=== PATIENT | female | born 1975 | race Caucasian/White ===

== ENCOUNTER 2016-09-26 08:37 | Emergency (ER) | payer MEDICAID ==
[2016-09-26 08:55] VITALS: BP 135/79
--- NOTE | 2016-09-26 11:35 | Emergency Department Report ---
HPI - General Chief Complaint: Headache Time Seen by Provider: 09/26/16 10:34 - HPI HPI: 41-year-old female with a past medical history migraines presents today with complaints of headache similar to previous migraines x20 days. Patient has been compliant with Imitrex, Percocet, and Zonisamide without relief. She also receives Botox therapy for difficult to control migraines. Patient supplies a letter written by her neurologist Obey Patterson with [facility] stating that patient has refractory migraines that have been resistant to multiple standard treatments and requested that patient be treated with Decadron and Dilaudid during ED presentation. Patient complains of some mild dizziness and blurred vision without neck pain, focal weakness, or numbness. Positive for nausea, vomiting and photosensitivity. Denies fever, chills, chest pain, shortness of breath, abdominal pain. ED Past Medical Hx - Past Medical History Hx Hypertension: Yes Hx CVA: No Hx Heart Attack/AMI: No Hx Congestive Heart Failure: No Hx Diabetes: No Hx Deep Vein Thrombosis: No Hx Pulmonary Embolism: Yes (09/2014) Hx Liver Disease: No Hx Renal Disease: No Hx Sickle Cell Disease: No Hx Arthritis: No Hx Headaches / Migraines: Yes ((receives botox treatments for migraine)) Hx Seizures: No Hx Kidney Stones: No Hx Psychiatric Treatment: Yes (DEPRESSION) Hx Asthma: No Hx COPD: No Hx Tuberculosis: No Hx Dementia: No Hx HIV: No Additional medical history: Vertigo. HYPOTHYROID. OBESITY - Surgical History Hx Coronary Stent: No Hx Open Heart Surgery: No Hx Pacemaker: No Hx Internal Defibrillator: No Hx Cholecystectomy: Yes (2010) Hx Appendectomy: No Hx Breast Surgery: No Additional Surgical History: 3 C-sections. tubal ligation in December 2008 - Social History Smoking Status: Former Smoker Substance Use Type: None - Medications Home Medications: Home Medications Medication Instructions Recorded Confirmed Last Taken Type Lisinopril [Zestril TAB] 20 mg PO QDAY 08/18/14 06/21/16 06/21/16 History Zonisamide 100 mg PO QHS 03/13/16 06/21/16 06/20/16 History HYDROcodone/APAP 5-325 [Benedict 1 each PO Q6HR PRN #14 tablet 04/20/16 06/21/16 Unknown Rx 5/325] Ondansetron [Zofran Odt] 4 mg PO Q6H #7 tab.rapdis 04/20/16 06/21/16 06/21/16 Rx Citalopram [celeXA] 20 mg PO QDAY 06/21/16 06/21/16 06/20/16 History SUMAtriptan SUCCINATE [Imitrex] 100 mg PO Q12H PRN 06/21/16 06/21/16 06/21/16 History ED Review of Systems ROS: Stated complaint: MIGRAINE/SEVERE NAUSEA Other details as noted in HPI Constitutional: denies: chills, fever, malaise Eyes: denies: eye pain ENT: denies: ear pain, throat pain, congestion Respiratory: denies: cough, shortness of breath, wheezing Cardiovascular: denies: chest pain, palpitations Endocrine: no symptoms reported Gastrointestinal: nausea, vomiting. denies: abdominal pain Neurological: headache. denies: weakness, numbness, paresthesias Physical Exam - Physical Exam Vital Signs: Vital Signs 09/26/16 08:53 Temperature 98.7 F Pulse Rate 89 Respiratory 18 Rate Blood Pressure 135/79 [Right] O2 Sat by Pulse 98 Oximetry Physical Exam: GENERAL: The patient is well-developed and well-nourished. Patient is in NAD. HEAD: Normocephalic. Atraumatic. EYES: Extraocular motions are intact, PERRL. NOSE: Normal nasal mucosa with no nasal discharge. THROAT: No erythema, swelling or exudates. NECK: No midline or paraspinal tenderness to palpation. CHEST/LUNGS: Clear to auscultation throughout. HEART/CARDIOVASCULAR: Regular rate and rhythm. No murmurs, rubs or gallops. ABDOMEN: Abdomen is soft, nontender. No guarding or rebound tenderness. EXTREMITIES: Peripheral pulses intact. Capillary refill less than 2 seconds. Neuro: Alert and oriented 3, normal gait, fluid speech, EOMs intact, normal facial sensation, strength exam 5/5 upper and lower extremities, GCS equals 15, finger to nose normal, negative Romberg test for pronator drift. ED Course Vital Signs 09/26/16 08:53 Temperature 98.7 F Pulse Rate 89 Respiratory 18 Rate Blood Pressure 135/79 [Right] O2 Sat by Pulse 98 Oximetry ED Medical Decision Making - Lab Data Vital Signs 09/26/16 08:53 Temperature 98.7 F Pulse Rate 89 Respiratory 18 Rate Blood Pressure 135/79 [Right] O2 Sat by Pulse 98 Oximetry - Medical Decision Making 41-year-old female with history of migraines presents today with a migraine headache 20 days. Patient referred from her neurologist stating it is acceptable for her to receive Decadron and IV Dilaudid for severe refractory migraines. Discussed with Dr. Villa, he denies administration of IV Dilaudid and recommends patient follow up with her neurologist. Informed the patient and she expressed understanding. Patient is in no acute distress at this time. She will be discharged home and is encouraged to follow up with her neurologist. She is encouraged to return to the emergency room for any worsening symptoms. Critical care attestation.: If time is entered above; I have spent that time in minutes in the direct care of this critically ill patient, excluding procedure time. ED Disposition Clinical Impression: Migraine headache Qualifiers: Migraine type: unspecified Status migrainosus presence: with status migrainosus Intractability: intractable Qualified Code(s): G43.911 - Migraine, unspecified, intractable, with status migrainosus Disposition: DISCHARGED TO HOME OR SELFCARE Is pt being admited?: No Does the pt Need Aspirin: No Condition: Stable Instructions: Migraine Headache (ED) Additional Instructions: Follow-up with primary care provider and neurologist. Return to the emergency department if symptoms worsen. Referrals: PRIMARY MD FERCHO [Primary Care Provider] - 3-5 Days AWILDA LENNON MD, PHD [Staff Physician] - 3-5 Days Forms: Work/School Release Form(ED) Time of Disposition: 11:37
== END 2016-09-26 11:50 | disposition home or self-care (01) ==
LOC: ED 08:37
DX: G43.911 Migraine, unspecified, intractable, with status migrainosus (principal); I10 Essential (primary) hypertension; F32.9 Major depressive disorder, single episode, unspecified; Z86.711 Personal history of pulmonary embolism; Z87.891 Personal history of nicotine dependence
CPT/HCPCS: 99281

== ENCOUNTER 2017-03-21 11:09 | Emergency (ER) | payer MEDICAID ==
[2017-03-21 11:41] VITALS: BP 144/79
[2017-03-21 12:03] LABS: Hematocrit 38.7 % (30.3-42.9); Mean Corpuscular HGB Conc 31 % (30-34); Mean Corpuscular Volume 79 fl (79-97); Platelet Count 294 K/mm3 (140-440); Red Cell Distribution Width 17.1 % (13.2-15.2); White Blood Count 14.6 K/mm3 (4.5-11.0)
[2017-03-21 12:08] LABS: Mean Corpuscular Hemoglobin 24 pg (28-32)
[2017-03-21 12:23] LABS: Alanine Aminotransferase 21 units/L (7-56); Albumin 3.9 g/dL (3.9-5); Albumin/Globulin Ratio 1.3 %; Alkaline Phosphatase 78 units/L (35-129); Anion Gap 18 mmol/L; BUN/Creatinine Ratio 17.14; Blood Urea Nitrogen 12 mg/dL (7-17); Calcium 8.9 mg/dL (8.4-10.2); Carbon Dioxide 21 mmol/L (22-30); Chloride 103.3 mmol/L (98-107); Glucose 90 mg/dL (65-100); Lipase 43 units/L (13-60); Potassium 3.1 mmol/L (3.6-5.0); Sodium 139 mmol/L (137-145); Total Protein 6.8 g/dL (6.3-8.2)
[2017-03-21 13:02] LABS: Basophils % (Manual) 0 % (0.0-1.8); Blastocytes % (Manual) 0 %
[2017-03-21 13:03] LABS: Elliptocytes Few; Hypochromasia 1+; Ovalocytes Few
[2017-03-21 13:04] LABS: Diff Status Complete; Platelet Estimate Consistent w Auto
[2017-03-21 13:59] LABS: Bacteria,Urine 1+ /HPF (Negative); Bilirubin,Urine NEG (Negative); Blood,Urine SM (Negative); Ketones,Urine NEG (Negative); Leukocyte Esterase,Urine NEG (Negative); Mucus,Urine FEW /HPF; Nitrite,Urine NEG (Negative); Protein,Urine <15 mg/dL mg/dL (Negative); Urobilinogen,Urine < 2.0 mg/dL (<2.0)
--- NOTE | 2017-03-22 10:35 | ED Elopement Review ---
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 Manual Diff Complete Total Counted 100 Seg Neuts % (Manual) 67.0 Band Neutrophils % 0 Lymphocytes % (Manual) 30.0 Reactive Lymphs % (Man) 0 Monocytes % (Manual) 2.0 Eosinophils % (Manual) 1.0 Basophils % (Manual) 0 Metamyelocytes % 0 Myelocytes % 0 Promyelocytes % 0 Blast Cells % 0 Nucleated RBC % Not Reportable Seg Neutrophils # Man 9.8 H Band Neutrophils # 0.0 Lymphocytes # (Manual) 4.4 Abs React Lymphs (Man) 0.0 Monocytes # (Manual) 0.3 Eosinophils # (Manual) 0.1 Basophils # (Manual) 0.0 Metamyelocytes # 0.0 Myelocytes # 0.0 Promyelocytes # 0.0 Blast Cells # 0.0 WBC Morphology Not Reportable Hypersegmented Neuts Not Reportable Hyposegmented Neuts Not Reportable Hypogranular Neuts Not Reportable Smudge Cells Not Reportable Toxic Granulation Not Reportable Toxic Vacuolation Not Reportable Dohle Bodies Not Reportable Pelger-Huet Anomaly Not Reportable Lonny Rods Not Reportable Platelet Estimate Consistent w auto Clumped Platelets Not Reportable Plt Clumps, EDTA Not Reportable Large Platelets Not Reportable Giant Platelets Not Reportable Platelet Satelliting Not Reportable Plt Morphology Comment Not Reportable RBC Morphology Not Reportable Dimorphic RBCs Not Reportable Polychromasia Not Reportable Hypochromasia 1+ Poikilocytosis Not Reportable Anisocytosis Not Reportable Microcytosis Not Reportable Macrocytosis Not Reportable Spherocytes Not Reportable Pappenheimer Bodies Not Reportable Sickle Cells Not Reportable Target Cells Not Reportable Tear Drop Cells Not Reportable Ovalocytes Few Helmet Cells Not Reportable [place] Bodies Not Reportable [place] Rings Not Reportable [place] Cells Not Reportable Bite Cells Not Reportable Crenated Cell Not Reportable Elliptocytes Few Acanthocytes (Spur) Not Reportable Rouleaux Not Reportable Hemoglobin C Crystals Not Reportable Schistocytes Not Reportable Malaria parasites Not Reportable [place] Bodies Not Reportable Hem Pathologist Commnt No Sodium 139 Potassium 3.1 L Chloride 103.3 Carbon Dioxide 21 L Anion Gap 18 BUN 12 Creatinine 0.7 Estimated GFR > 60 BUN/Creatinine Ratio 17.14 Glucose 90 Calcium 8.9 Total Bilirubin 0.20 AST 13 ALT 21 Alkaline Phosphatase 78 Total Protein 6.8 Albumin 3.9 Albumin/Globulin Ratio 1.3 Lipase 43 Urine Color Yellow Urine Turbidity Clear Urine pH 6.0 Ur Specific [place] 1.016 Urine Protein <15 mg/dl Urine Glucose (UA) >=500 Urine Ketones Neg Urine Blood Sm Urine Nitrite Neg Urine Bilirubin Neg Urine Urobilinogen < 2.0 Ur Leukocyte Esterase Neg Urine WBC (Auto) 1.0 Urine RBC (Auto) 1.0 U Epithel Cells (Auto) 3.0 Urine Bacteria (Auto) 1+ Urine Mucus Few - Call Back decision Pt Call Back Decision: Pt to F/U with PMD
== END 2017-03-21 21:35 | disposition left against medical advice (07) ==
LOC: ED 11:09
DX: R10.10 Upper abdominal pain, unspecified (principal); R11.11 Vomiting without nausea; Z53.21 Procedure and treatment not carried out due to patient leaving prior to being seen by health care provider
CPT/HCPCS: 36415; 80053; 81001; 81025; 83690; 85007; 85025

== ENCOUNTER 2017-04-05 09:19 | Emergency (ER) | payer MEDICAID ==
[2017-04-05 10:14] VITALS: BP 150/103
== END 2017-04-05 10:11 | disposition left against medical advice (07) ==
LOC: ED 09:19
DX: G43.909 Migraine, unspecified, not intractable, without status migrainosus (principal); R42 Dizziness and giddiness; R11.2 Nausea with vomiting, unspecified; Z88.8 Allergy status to other drugs, medicaments and biological substances; Z87.891 Personal history of nicotine dependence; Z53.21 Procedure and treatment not carried out due to patient leaving prior to being seen by health care provider

== ENCOUNTER 2017-04-26 08:58 | Emergency (ER) | payer MEDICAID ==
[2017-04-26 09:12] VITALS: BP 126/80
== END 2017-04-26 14:14 ==
LOC: ED 08:58
DX: R51 Headache (principal); Z53.21 Procedure and treatment not carried out due to patient leaving prior to being seen by health care provider
CPT/HCPCS: 93005; 93010

== ENCOUNTER 2017-05-05 03:01 | Emergency (ER) | payer MEDICAID ==
[2017-05-05 04:36] LABS: Eosinophils % (Auto) 2.4 % (0.0-4.3); Mean Corpuscular HGB Conc 31 % (30-34); Mean Corpuscular Volume 81 fl (79-97); Platelet Count 264 K/mm3 (140-440); Red Cell Distribution Width 18.5 % (13.2-15.2); White Blood Count 10.3 K/mm3 (4.5-11.0)
[2017-05-05 04:51] LABS: Hematocrit 41.3 % (30.3-42.9); Hemoglobin 12.6 gm/dl (10.1-14.3); Mean Corpuscular Hemoglobin 25 pg (28-32)
[2017-05-05 04:53] LABS: Alanine Aminotransferase 14 units/L (7-56); Albumin 4.2 g/dL (3.9-5); Albumin/Globulin Ratio 1.5 %; Alkaline Phosphatase 76 units/L (35-129); Anion Gap 22 mmol/L; Blood Urea Nitrogen 13 mg/dL (7-17); Calcium 8.8 mg/dL (8.4-10.2); Carbon Dioxide 16 mmol/L (22-30); Chloride 106.7 mmol/L (98-107); Glucose 102 mg/dL (65-100); Lipase 35 units/L (13-60); Potassium 4.2 mmol/L (3.6-5.0); Sodium 140 mmol/L (137-145)
[2017-05-05 04:58] LABS: Bacteria,Urine 1+ /HPF (Negative); Bilirubin,Urine NEG (Negative); Blood,Urine NEG (Negative); Ketones,Urine NEG (Negative); Leukocyte Esterase,Urine TR (Negative); Mucus,Urine FEW /HPF; Nitrite,Urine NEG (Negative); Protein,Urine <15 mg/dL mg/dL (Negative); Urobilinogen,Urine < 2.0 mg/dL (<2.0)
[2017-05-05] MEDS ORDERED: ZOFRAN IV ONE ×2 (07:54→09:53)
[2017-05-05] MEDS ORDERED: BENADRYL IV ONE ×2 (07:54→11:27)
[2017-05-05] MEDS ORDERED: DILAUDID IV ONE ×2 (07:54→10:19)
[2017-05-05] MEDS ORDERED: DECADRON IV ONE (07:54)
--- NOTE | 2017-05-05 07:57 | Emergency Department Report ---
HPI - General Chief Complaint: Abdominal Pain Time Seen by Provider: 05/05/17 07:39 - HPI HPI: This is a 42-year-old female presents to the emergency department complaint of a 3-4 day history of left-sided headache that is similar to her typical migraines, as well as a 2 day history of epigastric and right upper quadrant abdominal pain. The patient having some nausea and vomiting along with a headache for the past few days and she believes that this is what caused her abdominal discomfort. She tried her preventative migraine medications such as Imitrex as well as some Percocet for pain than any relief. She also has a past medical history of vertigo, hypothyroidism, pulmonary embolism 3 years ago. She has a surgical history of C-sections 3 and a tubal ligation. She denies any vision change, fever, slurred speech or any neurological deficits. Her primary care doctor is a Dr. Valentine and her neurologist is Dr. Obey Dickson through [facility]. No recent travel or sick contacts at home. ED Past Medical Hx - Past Medical History Previous Medical History?: Yes Hx Hypertension: Yes Hx CVA: No Hx Heart Attack/AMI: No Hx Congestive Heart Failure: No Hx Diabetes: No Hx Deep Vein Thrombosis: No Hx Pulmonary Embolism: Yes (09/2014) Hx Liver Disease: No Hx Renal Disease: No Hx Sickle Cell Disease: No Hx Arthritis: No Hx Headaches / Migraines: Yes ((receives botox treatments for migraine)) Hx Seizures: No Hx Kidney Stones: No Hx Psychiatric Treatment: Yes (DEPRESSION) Hx Asthma: No Hx COPD: No Hx Tuberculosis: No Hx Dementia: No Hx HIV: No Additional medical history: Vertigo. HYPOTHYROID. OBESITY - Surgical History Hx Coronary Stent: No Hx Open Heart Surgery: No Hx Pacemaker: No Hx Internal Defibrillator: No Hx Cholecystectomy: Yes (2010) Hx Appendectomy: No Hx Breast Surgery: No Additional Surgical History: 3 C-sections. tubal ligation in December 2008 - Social History Smoking Status: Former Smoker Substance Use Type: None - Medications Home Medications: Home Medications Medication Instructions Recorded Confirmed Last Taken Type Lisinopril [Zestril TAB] 20 mg PO QDAY 08/18/14 06/21/16 06/21/16 History Zonisamide 100 mg PO QHS 03/13/16 06/21/16 06/20/16 History HYDROcodone/APAP 5-325 [Foley 1 each PO Q6HR PRN #14 tablet 04/20/16 06/21/16 Unknown Rx 5/325] Ondansetron [Zofran Odt] 4 mg PO Q6H #7 tab.rapdis 04/20/16 06/21/16 06/21/16 Rx Citalopram [celeXA] 20 mg PO QDAY 06/21/16 06/21/16 06/20/16 History SUMAtriptan SUCCINATE [Imitrex] 100 mg PO Q12H PRN 06/21/16 06/21/16 06/21/16 History Ondansetron [Zofran Odt] 4 mg PO Q8H PRN #10 tab.rapdis 05/05/17 Unknown Rx ED Review of Systems ROS: Stated complaint: UPPER ABD PAIN , HEADACHES X'S 3 DAYS Other details as noted in HPI Comment: All other systems reviewed and negative Constitutional: denies: chills, fever Eyes: denies: eye pain, eye discharge, vision change ENT: denies: ear pain, throat pain Respiratory: denies: cough, shortness of breath, wheezing Cardiovascular: denies: chest pain, palpitations Gastrointestinal: abdominal pain, nausea, vomiting Genitourinary: denies: urgency, dysuria, discharge Musculoskeletal: denies: back pain, joint swelling, arthralgia Skin: denies: rash, lesions Neurological: headache. denies: numbness, paresthesias Physical Exam - Physical Exam Vital Signs: Vital Signs 05/05/17 03:53 Temperature 98.4 F Pulse Rate 120 H Respiratory 20 Rate Blood Pressure 148/96 O2 Sat by Pulse 99 Oximetry Physical Exam: GENERAL: The patient is well-developed well-nourished. HENT: Normocephalic. Atraumatic. Patient has moist mucous membranes. EYES: Extraocular motions are intact. Pupils equal reactive to light bilaterally. No nystagmus. NECK: Supple. Trachea is midline. CHEST/LUNGS: Clear to auscultation. There is no respiratory distress noted. HEART/CARDIOVASCULAR: Regular. There is mild tachycardia. There is no gallop rub or murmur. ABDOMEN: Abdomen is soft. Tenderness palpation to the upper quadrants of the abdomen. No guarding or rebound tenderness. Patient has normal bowel sounds. There is no abdominal distention. Obese habitus. SKIN: Skin is warm and dry. NEURO: The patient is awake, alert, and oriented. The patient is cooperative. The patient has no focal neurologic deficits. The patient has normal speech and gait. Cranial nerves II-12 grossly intact. MUSCULOSKELETAL: There is no tenderness or deformity. There is no limitation range of motion. There is no evidence of acute injury. ED Course Vital Signs 05/05/17 03:53 Temperature 98.4 F Pulse Rate 120 H Respiratory 20 Rate Blood Pressure 148/96 O2 Sat by Pulse 99 Oximetry ED Medical Decision Making - Lab Data Result diagrams: 05/05/17 04:15 05/05/17 04:15 - Radiology Data Radiology results: report reviewed, image reviewed interpreted by me: Abdominal x-ray shows nonspecific nonobstructive bowel gas. CT of the abdomen and pelvis with IV contrast shows no acute intra-abdominal or intrapelvic process/pathology. - Medical Decision Making 42-year-old female presents with complaint of a migraine headache, nausea and vomiting and upper abdominal pain. The patient has a history of migraine headaches and says that this is consistent with her previous migraines. She has no focal, motor or sensory deficits in her cranial nerves are intact. She had an abdominal x-ray that does not show any acute process. CT of the abdomen and pelvis with IV contrast was read by radiology as a normal examination as well. She has a mild tachycardia when she first arrived but that resolved with treatment. She received 1 dose of Decadron, pain medication, nausea meds and some fluid and upon reevaluation she is feeling improved. She was able to keep down some fluids without any further nausea or vomiting. Vital signs stable throughout her ED course including being afebrile. She has good follow-up with both primary care and neurology. She will be discharged with some Zofran and encouraged to return to the ER with any worsening of her symptoms or any acute distress. - Differential Diagnosis gastroenteritis, doubt obstruction, colitis, migraine headache, tension hea Critical Care Time: No Critical care attestation.: If time is entered above; I have spent that time in minutes in the direct care of this critically ill patient, excluding procedure time. ED Disposition Clinical Impression: Migraine headache Qualifiers: Migraine type: unspecified Status migrainosus presence: without status migrainosus Intractability: not intractable Qualified Code(s): G43.909 - Migraine, unspecified, not intractable, without status migrainosus Abdominal pain Qualifiers: Abdominal location: generalized Qualified Code(s): R10.84 - Generalized abdominal pain Nausea & vomiting Qualifiers: Vomiting type: unspecified Vomiting Intractability: non-intractable Qualified Code(s): R11.2 - Nausea with vomiting, unspecified Disposition: DC-01 TO HOME OR SELFCARE Is pt being admited?: No Condition: Stable Instructions: Migraine Headache (ED), Acute Nausea and Vomiting (ED), Abdominal Pain (ED) Additional Instructions: Please follow-up with your primary care physician and your neurologist. Return to the emergency Department with any worsening of her symptoms or any acute distress. Prescriptions: Ondansetron [Zofran Odt] 4 mg PO Q8H PRN #10 tab.rapdis PRN Reason: Nausea Referrals: PRIMARY CARE, [Primary Care Provider] - [facility] Time of Disposition: 11:35
[2017-05-05] MEDS ORDERED: REGLAN IV ONE (09:37)
[2017-05-05] MEDS ORDERED: NACL ONE (10:26)
--- NOTE | 2017-05-05 11:23 | Cat Scan Report ---
CT SCAN OF THE ABDOMEN AND PELVIS WITH CONTRAST: HISTORY: Abdominal pain. TECHNIQUE: Helical CT in 1.25mm intervals following IV contrast. Sagittal and coronal reconstructions. FINDINGS: The liver is normal in size and is without focal defect. No gallstones or biliary dilatation are noted. The gallbladder has been surgically removed. The spleen and pancreas demonstrate a normal size and attenuation with no evidence of abnormal mass. The kidneys are normal in size and position with no evidence of hydronephrosis or mass. The adrenal glands are normal. There is no intestinal obstruction or ascites. The appendix is not confidently identified, correlate with surgical history. The abdominal aorta is normal. No abnormalities are identified within the retroperitoneum or mesentery. There is no evidence of peritoneal air or fluid. There is no evidence of any abnormal masses or fluid collections within the pelvis. No adenopathy is identified. The bladder is normal. IMPRESSION: Unremarkable CT scan of the abdomen and pelvis with contrast.
[2017-05-05 11:37] VITALS: BP 130/78
--- NOTE | 2017-05-05 15:24 | XRay Report ---
FINAL REPORT PROCEDURE: XR ABDOMEN 2V TECHNIQUE: Supine and erect views of the abdomen are submitted. HISTORY: Abd pain COMPARISON: Noncontrast CT of the abdomen and pelvis 12/04/2015 FINDINGS: Cholecystectomy is seen. Constipation is noted. There is no bowel obstruction. There is no pathologic calcification or acute osseous abnormality. IMPRESSION: Constipation. Cholecystectomy.
== END 2017-05-05 11:52 | disposition home or self-care (01) ==
LOC: ED 03:01
DX: G43.909 Migraine, unspecified, not intractable, without status migrainosus (principal); R10.84 Generalized abdominal pain; R11.2 Nausea with vomiting, unspecified; I10 Essential (primary) hypertension; Z87.891 Personal history of nicotine dependence
CPT/HCPCS: 36415; 74020; 74177; 80053; 81001; 83690; 85025; 96374; 96375; 96376; 99284; J1100; J1170; J1200; J2405; J2765; Q9967

== ENCOUNTER 2017-07-02 08:42 | Emergency (ER) | payer MEDICAID ==
[2017-07-02 09:01] VITALS: BP 150/97
[2017-07-02 09:23] LABS: Basophils % (Auto) 0.6 % (0.0-1.8); Eosinophils % (Auto) 2.5 % (0.0-4.3); Mean Corpuscular HGB Conc 30 % (30-34); Mean Corpuscular Volume 82 fl (79-97); Platelet Count 257 K/mm3 (140-440); Red Blood Count 4.87 M/mm3 (3.65-5.03); Red Cell Distribution Width 17.7 % (13.2-15.2); White Blood Count 7.9 K/mm3 (4.5-11.0)
[2017-07-02 09:28] LABS: Hematocrit 39.8 % (30.3-42.9); Hemoglobin 12.1 gm/dl (10.1-14.3); Mean Corpuscular Hemoglobin 25 pg (28-32)
[2017-07-02 09:35] LABS: Anion Gap 17 mmol/L; BUN/Creatinine Ratio 18; Blood Urea Nitrogen 11 mg/dL (7-17); Calcium 8.9 mg/dL (8.4-10.2); Carbon Dioxide 19 mmol/L (22-30); Chloride 104.1 mmol/L (98-107); Glucose 101 mg/dL (65-100); Potassium 3.8 mmol/L (3.6-5.0); Sodium 136 mmol/L (137-145)
[2017-07-02 09:40] LABS: Bilirubin,Urine NEG (Negative); Blood,Urine NEG (Negative); Ketones,Urine NEG (Negative); Leukocyte Esterase,Urine NEG (Negative); Mucus,Urine FEW /HPF; Nitrite,Urine NEG (Negative); Protein,Urine <15 mg/dL mg/dL (Negative); Urobilinogen,Urine < 2.0 mg/dL (<2.0); WBC,Urine < 1.0 /HPF (0.0-6.0)
== END 2017-07-02 16:00 | disposition left against medical advice (07) ==
LOC: ED 08:42
DX: G43.909 Migraine, unspecified, not intractable, without status migrainosus (principal); R11.10 Vomiting, unspecified; Z53.21 Procedure and treatment not carried out due to patient leaving prior to being seen by health care provider
CPT/HCPCS: 36415; 80048; 81001; 85025

== ENCOUNTER 2017-09-26 05:09 | Emergency (ER) | payer SELFPAY ==
--- NOTE | 2017-09-26 07:14 | Cat Scan Report ---
FINAL REPORT EXAM: CT HEAD/BRAIN WO CON HISTORY: "more intense migraine than my usual" TECHNIQUE: CT imaging acquired through the head without intravenous contrast. Transaxial reformations are provided. PRIORS: 12/04/2015 FINDINGS: The ventricles, cisterns and sulci are normal. No intraparenchymal or extra-axial mass, hemorrhage, or mass effect. Dumont and white-matter differentiation is normal. The partially imaged right sphenoid ethmoidal mucosal thickening. Normal spherical shape of the globes. Imaged portions of the retrobulbar fat are unremarkable. Remaining imaged paranasal sinuses and mastoid air cells are clear. IMPRESSION: No acute intracranial abnormality. Partially imaged sphenoid ethmoid mucosal sinus disease.
--- NOTE | 2017-09-26 16:28 | Emergency Department Report ---
ED Headache HPI - General Chief Complaint: Headache Stated Complaint: HEADACHE X TEN DAYS Time Seen by Provider: 09/26/17 16:06 - History of Present Illness Initial Comments: 42 yo female who comes in today due to a headache. She states that it has been present times ten days. She sees Neurology at [facility] for her migraine headaches on a regular basis, and her meds were increased recently. Headache described as left parietal, 10/10, throbbing, with associated nausea, vomiting, and photophobia. Head ct unremarkable. Timing/Duration: other (10 days ) Quality: throbbing Head Injury Location: parietal (left ) Recent Head Trauma: no recent headache/trauma Modifying Factors: improves with: medication Associated Symptoms: other (photophobia ) Allergies/Adverse Reactions: Allergies ketorolac tromethamine [From Toradol] Allergy (Intermediate, Verified 04/05/17 10:14) Anaphylaxis Home Medications: Ambulatory Orders Lisinopril [Zestril TAB] 20 mg PO QDAY 08/18/14 Zonisamide 100 mg PO QHS 03/13/16 HYDROcodone/APAP 5-325 [[place] 5/325] 1 each PO Q6HR PRN #14 tablet 04/20/16 Ondansetron [Zofran Odt] 4 mg PO Q6H #7 tab.rapdis 04/20/16 Citalopram [celeXA] 20 mg PO QDAY 06/21/16 SUMAtriptan SUCCINATE [Imitrex] 100 mg PO Q12H PRN 06/21/16 Ondansetron [Zofran Odt] 4 mg PO Q8H PRN #10 tab.rapdis 05/05/17 ED Review of Systems ROS: Stated complaint: HEADACHE X TEN DAYS Other details as noted in HPI Constitutional: denies: chills, fever Eyes: other (photophobia ) ENT: denies: ear pain, throat pain Respiratory: denies: cough, shortness of breath, wheezing Cardiovascular: denies: chest pain, palpitations Endocrine: no symptoms reported Gastrointestinal: denies: abdominal pain, nausea, diarrhea Genitourinary: denies: urgency, dysuria, discharge Musculoskeletal: denies: back pain, joint swelling, arthralgia Neurological: as per HPI, headache Hematological/Lymphatic: denies: easy bleeding, easy bruising ED Past Medical Hx - Past Medical History Previous Medical History?: Yes Hx Hypertension: Yes Hx CVA: No Hx Heart Attack/AMI: No Hx Congestive Heart Failure: No Hx Diabetes: No Hx Deep Vein Thrombosis: No Hx Pulmonary Embolism: Yes (09/2014) Hx Liver Disease: No Hx Renal Disease: No Hx Sickle Cell Disease: No Hx Arthritis: No Hx Headaches / Migraines: Yes ((receives botox treatments for migraine)) Hx Seizures: No Hx Kidney Stones: No Hx Psychiatric Treatment: Yes (DEPRESSION) Hx Asthma: No Hx COPD: No Hx Tuberculosis: No Hx Dementia: No Hx HIV: No Additional medical history: Vertigo. HYPOTHYROID. OBESITY - Surgical History Past Surgical History?: Yes Hx Coronary Stent: No Hx Open Heart Surgery: No Hx Pacemaker: No Hx Internal Defibrillator: No Hx Cholecystectomy: Yes (2010) Hx Appendectomy: No Hx Breast Surgery: No Additional Surgical History: 3 C-sections. tubal ligation in December 2008 - Social History Smoking Status: Former Smoker Substance Use Type: None - Medications Home Medications: Home Medications Medication Instructions Recorded Confirmed Last Taken Type Lisinopril [Zestril TAB] 20 mg PO QDAY 08/18/14 06/21/16 06/21/16 History Zonisamide 100 mg PO QHS 03/13/16 06/21/16 06/20/16 History HYDROcodone/APAP 5-325 [[place] 1 each PO Q6HR PRN #14 tablet 04/20/16 06/21/16 Unknown Rx 5/325] Ondansetron [Zofran Odt] 4 mg PO Q6H #7 tab.rapdis 04/20/16 06/21/16 06/21/16 Rx Citalopram [celeXA] 20 mg PO QDAY 06/21/16 06/21/16 06/20/16 History SUMAtriptan SUCCINATE [Imitrex] 100 mg PO Q12H PRN 06/21/16 06/21/16 06/21/16 History Ondansetron [Zofran Odt] 4 mg PO Q8H PRN #10 tab.rapdis 05/05/17 Unknown Rx ED Physical Exam - General Limitations: No Limitations General appearance: alert, in no apparent distress - Head Head exam: Present: atraumatic, normocephalic - Eye Eye exam: Present: normal appearance - ENT ENT exam: Present: mucous membranes moist - Neck Neck exam: Present: normal inspection - Respiratory Respiratory exam: Present: normal lung sounds bilaterally. Absent: respiratory distress - Cardiovascular Cardiovascular Exam: Present: regular rate, normal rhythm. Absent: systolic murmur, diastolic murmur, rubs, gallop - Extremities Exam Extremities exam: Present: normal inspection - Back Exam Back exam: Present: normal inspection - Neurological Exam Neurological exam: Present: alert, oriented X3 - Psychiatric Psychiatric exam: Present: normal affect, normal mood - Skin Skin exam: Present: warm, dry, intact, normal color. Absent: rash ED Course Vital Signs 09/26/17 06:25 Temperature 98.2 F Pulse Rate 95 H Respiratory 18 Rate Blood Pressure 134/91 O2 Sat by Pulse 97 Oximetry - Reevaluation(s) Reevaluation #1: 09/26/17 16:29 Patient sees Neurology on a regular basis. Headache times ten days. History of depression. Reevaluation #2: 09/26/17 17:36 I went in to reassess the patient. She declined the geodon. She is requesting a narcotic for her headache. I informed her that I don't give narcotics for headaches. Home after treatment. 09/26/17 18:02 The patient requested imitrex in place of a narcotic. Imitrex given and plan to discharge the patient home. Follow up with Neuro as scheduled. ED Medical Decision Making - Radiology Data Radiology results: report reviewed (No acute pathology-CT head ) - Medical Decision Making Chronic migraine Chronic pain - Differential Diagnosis chronic migraine, chronic pain Critical care attestation.: If time is entered above; I have spent that time in minutes in the direct care of this critically ill patient, excluding procedure time. ED Disposition Clinical Impression: Migraine headache, Chronic pain Disposition: DC-01 TO HOME OR SELFCARE Is pt being admited?: No Does the pt Need Aspirin: No Condition: Stable Instructions: Migraine Headache (ED), Chronic Pain (ED) Additional Instructions: Please follow up with your Neurologist on discharge. Call for an appointment. Return to the ED for a worsening headache, sensitivity to light, nausea, vomiting, neck pain, fever, or chills. Referrals: PRIMARY CARE, [Primary Care Provider] - 3-5 Days Time of Disposition: 18:03
[2017-09-26] MEDS ORDERED: GEODON IM ONE (16:30)
[2017-09-26] MEDS ORDERED: ZOFRAN ODT PO ONE (16:31)
[2017-09-26] MEDS ORDERED: IMITREX SUB-Q ONE (17:39)
[2017-09-26 18:09] VITALS: BP 161/102
== END 2017-09-26 18:43 | disposition home or self-care (01) ==
LOC: ED 05:09
DX: G43.909 Migraine, unspecified, not intractable, without status migrainosus (principal); G89.29 Other chronic pain; I10 Essential (primary) hypertension; E03.9 Hypothyroidism, unspecified; F32.9 Major depressive disorder, single episode, unspecified; Z90.49 Acquired absence of other specified parts of digestive tract; Z98.51 Tubal ligation status; Z87.891 Personal history of nicotine dependence; Z88.6 Allergy status to analgesic agent; Z86.711 Personal history of pulmonary embolism
CPT/HCPCS: 70450; 96372; J3030; J3486; Q0162

== ENCOUNTER 2018-02-09 06:27 | Emergency (ER) | payer SELFPAY ==
[2018-02-09 06:33] VITALS: BP 154/104
== END 2018-02-09 10:20 | disposition left against medical advice (07) ==
LOC: ED 06:27
DX: M54.5 Low back pain (principal); Z53.21 Procedure and treatment not carried out due to patient leaving prior to being seen by health care provider

== ENCOUNTER 2018-04-14 09:20 | Emergency (ER) | payer SELFPAY ==
[2018-04-14 09:43] VITALS: BP 167/89
[2018-04-14] MEDS ORDERED: MOTRIN PO ONE (10:41)
[2018-04-14] MEDS ORDERED: FLEXERIL PO ONE (10:41)
--- NOTE | 2018-04-14 11:09 | Emergency Department Report ---
ED Fall HPI - General Chief Complaint: Fall Stated Complaint: LOW BACK PAIN Time Seen by Provider: 04/14/18 10:38 Source: patient Mode of arrival: Ambulatory - History of Present Illness Initial Comments: This is a 43-year-old female nontoxic, well nourished in appearance, no acute signs of distress presents to the ED with c/o of acute on chronic lower back pain. Patient stated that yesterday she was walking and tripped over her dog and fell onto her lower back. Patient stated has history of lumbar surgery. Patient states has history of sciatica nerve pain which is similar symptoms as today. Patient states that pain radiates through to his left lower extremity. Denies any bladder or bowel instability. Patient denies any urinary symptoms. Patient denies any head trauma or LOC. Denies any fever, chills, nausea, vomiting, headache, stiff neck, chest pain or shortness of breath. Patient denies any numbness or tingling. Patient stated allergies to Toradol. PMH includes headache and hypertension, depression and PE. MD Complaint: fall -: Last night Fall From: standing Fall Witnessed: no Place Fall Occurred: home Loss of Consciousness: none Prolonged Down Time?: no Symptoms Prior to Fall: none Location: back Severity: mild Severity scale (0 -10): 8 Quality: aching Context: tripped/slipped Associated Symptoms: denies: headache, neck pain, numbness, weakness, chest paint, shortness of breath, abdominal pain, hematuria, unable to walk, lightheaded, vertigo, confusion - Related Data Home Medications Medication Instructions Recorded Confirmed Last Taken Lisinopril [Zestril TAB] 20 mg PO QDAY 08/18/14 06/21/16 06/21/16 Zonisamide 100 mg PO QHS 03/13/16 06/21/16 06/20/16 Citalopram [celeXA] 20 mg PO QDAY 06/21/16 06/21/16 06/20/16 SUMAtriptan SUCCINATE [Imitrex] 100 mg PO Q12H PRN 06/21/16 06/21/16 06/21/16 Previous Rx's Medication Instructions Recorded Last Taken Type HYDROcodone/APAP 5-325 [[place] 1 each PO Q6HR PRN #14 tablet 04/20/16 Unknown Rx 5/325] Ondansetron [Zofran Odt] 4 mg PO Q6H #7 tab.rapdis 04/20/16 06/21/16 Rx Ondansetron [Zofran Odt] 4 mg PO Q8H PRN #10 tab.rapdis 05/05/17 Unknown Rx Cyclobenzaprine [Flexeril] 10 mg PO QHS PRN #10 tablet 04/14/18 Unknown Rx Ibuprofen [Motrin] 600 mg PO Q8H PRN #30 tablet 04/14/18 Unknown Rx Allergies Allergy/AdvReac Type Severity Reaction Status Date / Time ketorolac tromethamine Allergy Intermediate Anaphylaxis Verified 04/14/18 09:27 [From Toradol] ED Review of Systems ROS: Stated complaint: LOW BACK PAIN Other details as noted in HPI Constitutional: denies: chills, fever Eyes: denies: eye pain, eye discharge, vision change ENT: denies: ear pain, throat pain Respiratory: denies: cough, shortness of breath, wheezing Cardiovascular: denies: chest pain, palpitations Endocrine: no symptoms reported Gastrointestinal: denies: abdominal pain, nausea, diarrhea Genitourinary: denies: urgency, dysuria, discharge Musculoskeletal: back pain. denies: joint swelling, arthralgia Skin: denies: rash, lesions Neurological: denies: headache, weakness, paresthesias Psychiatric: denies: anxiety, depression Hematological/Lymphatic: denies: easy bleeding, easy bruising ED Past Medical Hx - Past Medical History Previous Medical History?: Yes Hx Hypertension: Yes Hx CVA: No Hx Heart Attack/AMI: No Hx Congestive Heart Failure: No Hx Diabetes: No Hx Deep Vein Thrombosis: No Hx Pulmonary Embolism: Yes (09/2014) Hx Liver Disease: No Hx Renal Disease: No Hx Sickle Cell Disease: No Hx Arthritis: No Hx Headaches / Migraines: Yes ((receives botox treatments for migraine)) Hx Seizures: No Hx Kidney Stones: No Hx Psychiatric Treatment: Yes (DEPRESSION) Hx Asthma: No Hx COPD: No Hx Tuberculosis: No Hx Dementia: No Hx HIV: No Additional medical history: Vertigo. HYPOTHYROID. OBESITY - Surgical History Past Surgical History?: Yes Hx Coronary Stent: No Hx Open Heart Surgery: No Hx Pacemaker: No Hx Internal Defibrillator: No Hx Cholecystectomy: Yes (2010) Hx Appendectomy: No Hx Breast Surgery: No Additional Surgical History: 3 C-sections. tubal ligation in December 2008. back surgery - Social History Smoking Status: Never Smoker Substance Use Type: None - Medications Home Medications: Home Medications Medication Instructions Recorded Confirmed Last Taken Type Lisinopril [Zestril TAB] 20 mg PO QDAY 08/18/14 06/21/16 06/21/16 History Zonisamide 100 mg PO QHS 03/13/16 06/21/16 06/20/16 History HYDROcodone/APAP 5-325 [[place] 1 each PO Q6HR PRN #14 tablet 04/20/16 06/21/16 Unknown Rx 5/325] Ondansetron [Zofran Odt] 4 mg PO Q6H #7 tab.rapdis 04/20/16 06/21/16 06/21/16 Rx Citalopram [celeXA] 20 mg PO QDAY 06/21/16 06/21/16 06/20/16 History SUMAtriptan SUCCINATE [Imitrex] 100 mg PO Q12H PRN 06/21/16 06/21/16 06/21/16 History Ondansetron [Zofran Odt] 4 mg PO Q8H PRN #10 tab.rapdis 05/05/17 Unknown Rx Cyclobenzaprine [Flexeril] 10 mg PO QHS PRN #10 tablet 04/14/18 Unknown Rx Ibuprofen [Motrin] 600 mg PO Q8H PRN #30 tablet 04/14/18 Unknown Rx ED Physical Exam - General Limitations: No Limitations General appearance: alert, in no apparent distress - Head Head exam: Present: atraumatic, normocephalic - Eye Eye exam: Present: normal appearance Pupils: Present: normal accommodation - ENT ENT exam: Present: normal exam, mucous membranes moist - Neck Neck exam: Present: normal inspection, full ROM. Absent: tenderness, meningismus, lymphadenopathy - Respiratory Respiratory exam: Present: normal lung sounds bilaterally. Absent: respiratory distress, wheezes, rales, rhonchi, stridor, chest wall tenderness, accessory muscle use, decreased breath sounds, prolonged expiratory - Cardiovascular Cardiovascular Exam: Present: regular rate, normal rhythm, normal heart sounds. Absent: irregular rhythm, systolic murmur, diastolic murmur, rubs, gallop - GI/Abdominal GI/Abdominal exam: Present: soft, normal bowel sounds. Absent: distended, tenderness, guarding, rebound, rigid, diminished bowel sounds - Rectal Rectal exam: Present: deferred - Extremities Exam Extremities exam: Present: normal inspection, full ROM, normal capillary refill. Absent: tenderness - Back Exam Back exam: Present: normal inspection, full ROM, paraspinal tenderness (lumbar paraspinal area). Absent: tenderness, CVA tenderness (R), CVA tenderness (L), muscle spasm, vertebral tenderness, rash noted - Expanded Back Exam Expanded Back exam: Absent: saddle anesthesia Back exam: Negative Straight Leg Raising: Left, Right - Neurological Exam Neurological exam: Present: alert, oriented X3, normal gait - Psychiatric Psychiatric exam: Present: normal affect, normal mood - Skin Skin exam: Present: warm, dry, intact, normal color. Absent: rash ED Course Vital Signs 04/14/18 04/14/18 09:24 10:49 Temperature 98.3 F Pulse Rate 106 H Respiratory 16 17 Rate Blood Pressure 167/89 O2 Sat by Pulse 100 Oximetry - Reevaluation(s) Reevaluation #1: 04/14/18 11:07 Patient is speaking in full sentences with no signs of distress noted. ED Medical Decision Making - Medical Decision Making This is a 43-year-old female that presents with low back strain. Patient is stable was examined by me. Xray obtained and has been viewed by Dr. Todd with no acute abnormalities. There is no spinal tenderness. There is no cauda equina syndrome during examination. No bladder or bowel instability. Patient received Motrin and Flexeril in the ED which preceded his symptoms has resolved and subsided. Patient stated to me that she does not have any allergies to MOtrin and that she takes OTC with no allergies. Patient stated son is when drive the patient home after discharge due to possible drowsiness from Flexeril. Patient is discharged with muscle relaxant and Motrin. Patient was instructed not to operate any machinery while taking muscle relaxant as they cause her drowsiness. Patient was referred to Follow-up with a primary care doctor in 3-5 days or if symptoms worsen and continue return to emergency room as soon as possible. At time of discharge, the patient does not seem toxic or ill in appearance. No acute signs of distress noted. Patient agrees to discharge treatment plan of care. No further questions noted by the patient. This chart is dictated with using [employer]ation [employer] Critical care attestation.: If time is entered above; I have spent that time in minutes in the direct care of this critically ill patient, excluding procedure time. ED Disposition Clinical Impression: Low back strain Qualifiers: Encounter type: initial encounter Qualified Code(s): S39.012A - Strain of muscle, fascia and tendon of lower back, initial encounter Fall Qualifiers: Encounter type: initial encounter Qualified Code(s): W19.XXXA - Unspecified fall, initial encounter Disposition: TO HOME OR SELFCARE Is pt being admited?: No Does the pt Need Aspirin: No Condition: Stable Instructions: Ibuprofen (By mouth), Cyclobenzaprine (By mouth), Low Back Strain (ED), Fall Prevention (ED) Additional Instructions: Follow-up with your primary care doctor in 3-5 days or if symptoms worsen such as bladder or bowel stability, chest pain, short of breath, numbness or tingling sensation in extremities, headache, dizziness, visual changes, nausea vomiting, or abdominal pain, return back to emergency room as was possible. Take ibuprofen and Flexeril as prescribed. Do not operate heavy machinery while taking Flexeril due to sedation Prescriptions: Cyclobenzaprine [Flexeril] 10 mg PO QHS PRN #10 tablet PRN Reason: Muscle Spasm Ibuprofen [Motrin] 600 mg PO Q8H PRN #30 tablet PRN Reason: Pain Referrals: PRIMARY CARE, [Primary Care Provider] - 3-5 Days AMBER BERRY MD [Staff Physician] - 3-[address] [facility] [Outside] - 3-5 Days [facility] [Outside] - 3-5 Days Forms: Work/School Release Form(ED)
--- NOTE | 2018-04-14 12:22 | XRay Report ---
LUMBOSACRAL SPINE, 3 VIEWS: History: Back pain Findings: The vertebral bodies, disk spaces and posterior elements are intact. No compression deformity or malalignment. The SI joints are symmetric and unremarkable. Impression: 1. No evidence for acute injury to the lumbar spine.
== END 2018-04-14 11:34 | disposition home or self-care (01) ==
LOC: ED 09:20
DX: S39.012A Strain of muscle, fascia and tendon of lower back, initial encounter (principal); I10 Essential (primary) hypertension; G43.909 Migraine, unspecified, not intractable, without status migrainosus; F32.9 Major depressive disorder, single episode, unspecified; E03.9 Hypothyroidism, unspecified; Z86.711 Personal history of pulmonary embolism; Z90.49 Acquired absence of other specified parts of digestive tract; Z98.51 Tubal ligation status; Z88.6 Allergy status to analgesic agent; W01.0XXA Fall on same level from slipping, tripping and stumbling without subsequent striking against object, initial encounter; Y93.89 Activity, other specified; Y99.8 Other external cause status; Y92.009 Unspecified place in unspecified non-institutional (private) residence as the place of occurrence of the external cause
CPT/HCPCS: 72100; 99283

== ENCOUNTER 2018-10-22 15:54 | Emergency (ER) | payer OTHER ==
--- NOTE | 2018-10-22 16:41 | Emergency Department Report ---
Blank Doc - Documentation Documentation: R flank pain radiating to abdomen x 3 day with n/vomitting urinary urgency. denies vag bleed/dc PLAN: Labs ordered CT abdomen
[2018-10-22 17:20] LABS: Basophils # (Auto) 0.1 K/mm3 (0.0-0.1); Eosinophils # (Auto) 0.3 K/mm3 (0.0-0.4); Eosinophils % (Auto) 3.4 % (0.0-4.3); Hematocrit 35.4 % (30.3-42.9); Hemoglobin 11.1 gm/dl (10.1-14.3); Lymphocytes # (Auto) 3.1 K/mm3 (1.2-5.4); Lymphocytes % (Auto) 41.8 % (13.4-35.0); Mean Corpuscular HGB Conc 31 % (30-34); Mean Corpuscular Volume 72 fl (79-97); Monocytes # (Auto) 0.5 K/mm3 (0.0-0.8); Monocytes % (Auto) 6.1 % (0.0-7.3); Platelet Count 259 K/mm3 (140-440); Red Blood Count 4.94 M/mm3 (3.65-5.03)
[2018-10-22 17:21] LABS: Red Cell Distribution Width 20.3 % (13.2-15.2)
[2018-10-22 17:37] LABS: Alanine Aminotransferase 15 units/L (7-56); Albumin 3.8 g/dL (3.9-5); BUN/Creatinine Ratio 13; Blood Urea Nitrogen 9 mg/dL (7-17); Calcium 8.9 mg/dL (8.4-10.2); Hemolysis Index 5
[2018-10-22 18:30] LABS: Bilirubin,Urine NEG (Negative); Blood,Urine NEG (Negative); Color,Urine Yellow (Yellow); Mucus,Urine FEW /HPF; Protein,Urine <15 mg/dL mg/dL (Negative)
[2018-10-22] MEDS ORDERED: ZOFRAN ODT PO ONE ×2 (19:29→19:44)
[2018-10-22] MEDS ORDERED: NORCO 5/325 PO ONE ×2 (19:29→19:44)
[2018-10-22] MEDS ORDERED: ZOFRAN ODT ONE (19:32)
[2018-10-22] MEDS ORDERED: NORCO 5/325 ONE (19:32)
--- NOTE | 2018-10-22 19:36 | Cat Scan Report ---
FINAL REPORT PROCEDURE: CT ABDOMEN PELVIS WO CON TECHNIQUE: Computerized axial tomography of the abdomen and pelvis was performed without intravenous contrast. This study is performed without intravascular contrast material and its sensitivity for ab dominal and pelvic pathology, including neoplasms, inflammation, abscess, free fluid, thrombosis, art erial dissection and infarction, is reduced compared with a contrast enhanced study. HISTORY: flank/ abdo pain COMPARISON: 12/04/2015 FINDINGS: Visualized lower thorax: No significant abnormality. Liver: Normal size and attenuation. Spleen: Normal size and attenuation. Gallbladder and biliary system: There has been cholecystectomy. Pancreas: Normal. Adrenals: Normal. Kidneys: Punctate 1 millimeter nonobstructing left renal calculus . GI tract: The appendix is visualized and does not appear inflamed. No bowel obstruction or inflammati on. Lymph nodes and mesentery: Normal. Vasculature: Normal. Bladder: Normal. Reproductive organs: There is a tampon in the vagina. No acute abnormality is seen. Peritoneum: No free fluid. Musculoskeletal structures: There are degenerative disc changes at L5-S1. Other: None. IMPRESSION: No acute abnormality is identified. There is a punctate nonobstructing left renal calculus
--- NOTE | 2018-10-22 19:47 | Emergency Department Report ---
ED Abdominal Pain HPI - General Chief Complaint: Abdominal Pain Stated Complaint: LOWER BACK PAIN Time Seen by Provider: 10/22/18 16:20 Source: patient Mode of arrival: Ambulatory Limitations: No Limitations - History of Present Illness Initial Comments: 43-year-old white female with history of kidney stones who presents for right hand pain radiating suprapubic days there is no hematuria no fever no chills no chills there is intermittent nausea vomiting however patient is tolerating by mouth intake without nausea vomiting at this time patient denies dysuria frequency urgency or hesitancy, pt states she is out of pain medication however has not see urology MD Complaint: flank pain Onset/Timin Location: R flank Radiation: suprapubic Migration to: no migration Severity: moderate Severity scale (0 -10): 9 Quality: sharp Consistency: intermittent Improves With: nothing Worsens With: movement Context: other (renal stones ) Associated Symptoms: nausea, vomiting - Related Data Home Medications Medication Instructions Recorded Confirmed Last Taken Lisinopril [Zestril TAB] 20 mg PO QDAY 08/18/14 06/21/16 06/21/16 Zonisamide 100 mg PO QHS 03/13/16 06/21/16 06/20/16 Citalopram [celeXA] 20 mg PO QDAY 06/21/16 06/21/16 06/20/16 SUMAtriptan SUCCINATE [Imitrex] 100 mg PO Q12H PRN 06/21/16 06/21/16 06/21/16 Previous Rx's Medication Instructions Recorded Last Taken Type HYDROcodone/APAP 5-325 [Murray 1 each PO Q6HR PRN #14 tablet 04/20/16 Unknown Rx 5/325] Ondansetron [Zofran Odt] 4 mg PO Q6H #7 tab.rapdis 04/20/16 06/21/16 Rx Ondansetron [Zofran Odt] 4 mg PO Q8H PRN #10 tab.rapdis 05/05/17 Unknown Rx Cyclobenzaprine [Flexeril] 10 mg PO QHS PRN #10 tablet 04/14/18 Unknown Rx Ibuprofen [Motrin] 600 mg PO Q8H PRN #30 tablet 04/14/18 Unknown Rx Acetaminophen [Tylenol Extra 1,000 mg PO QID PRN #30 tablet 08/23/18 Unknown Rx Strength] Acetaminophen/Codeine [Tylenol 1 tab PO Q6H PRN #6 tab 08/23/18 Unknown Rx /Codeine # 3 tab] Prochlorperazine [Compazine] 10 mg PO Q8HR PRN #21 tablet 08/23/18 Unknown Rx diphenhydrAMINE [Benadryl CAP] 25 mg PO Q6HR PRN #28 capsule 08/23/18 Unknown Rx Acetaminophen/Codeine [Tylenol 1 tab PO Q6H PRN #12 tab 10/22/18 Unknown Rx /Codeine # 3 tab] Ondansetron [Zofran Odt] 4 mg PO Q8HR PRN #12 tab.rapdis 10/22/18 Unknown Rx Tamsulosin [Flomax] 0.4 mg PO QDAY #30 cap 10/22/18 Unknown Rx Allergies Allergy/AdvReac Type Severity Reaction Status Date / Time ketorolac tromethamine Allergy Intermediate Anaphylaxis Verified 04/14/18 09:27 [From Toradol] ED Review of Systems ROS: Stated complaint: LOWER BACK PAIN Other details as noted in HPI Constitutional: denies: chills, fever Eyes: denies: eye pain, eye discharge, vision change ENT: denies: ear pain, throat pain Respiratory: denies: cough, shortness of breath, wheezing Cardiovascular: denies: chest pain, palpitations Endocrine: no symptoms reported Gastrointestinal: abdominal pain (right flank pain ), nausea, vomiting Genitourinary: denies: urgency, dysuria, frequency, hematuria, discharge, abnormal menses, dyspareunia Musculoskeletal: denies: back pain, joint swelling, arthralgia Skin: denies: rash, lesions Neurological: denies: headache, weakness, paresthesias Psychiatric: denies: anxiety, depression Hematological/Lymphatic: denies: easy bleeding, easy bruising ED Past Medical Hx - Past Medical History Hx Hypertension: Yes Hx CVA: No Hx Heart Attack/AMI: No Hx Congestive Heart Failure: No Hx Diabetes: No Hx Deep Vein Thrombosis: No Hx Pulmonary Embolism: Yes (09/2014) Hx Liver Disease: No Hx Renal Disease: No Hx Sickle Cell Disease: No Hx Arthritis: No Hx Headaches / Migraines: Yes ((receives botox treatments for migraine)) Hx Seizures: No Hx Kidney Stones: No Hx Psychiatric Treatment: Yes (DEPRESSION) Hx Asthma: No Hx COPD: No Hx Tuberculosis: No Hx Dementia: No Hx HIV: No Additional medical history: Vertigo. HYPOTHYROID. OBESITY - Surgical History Hx Coronary Stent: No Hx Open Heart Surgery: No Hx Pacemaker: No Hx Internal Defibrillator: No Hx Cholecystectomy: Yes (2010) Hx Appendectomy: No Hx Breast Surgery: No Additional Surgical History: 3 C-sections. tubal ligation in December 2008. back surgery - Social History Smoking Status: Former Smoker Substance Use Type: None - Medications Home Medications: Home Medications Medication Instructions Recorded Confirmed Last Taken Type Lisinopril [Zestril TAB] 20 mg PO QDAY 08/18/14 06/21/16 06/21/16 History Zonisamide 100 mg PO QHS 03/13/16 06/21/16 06/20/16 History HYDROcodone/APAP 5-325 [Murray 1 each PO Q6HR PRN #14 tablet 04/20/16 06/21/16 Unknown Rx 5/325] Ondansetron [Zofran Odt] 4 mg PO Q6H #7 tab.rapdis 04/20/16 06/21/16 06/21/16 Rx Citalopram [celeXA] 20 mg PO QDAY 06/21/16 06/21/16 06/20/16 History SUMAtriptan SUCCINATE [Imitrex] 100 mg PO Q12H PRN 06/21/16 06/21/16 06/21/16 History Ondansetron [Zofran Odt] 4 mg PO Q8H PRN #10 tab.rapdis 05/05/17 Unknown Rx Cyclobenzaprine [Flexeril] 10 mg PO QHS PRN #10 tablet 04/14/18 Unknown Rx Ibuprofen [Motrin] 600 mg PO Q8H PRN #30 tablet 04/14/18 Unknown Rx Acetaminophen [Tylenol Extra 1,000 mg PO QID PRN #30 tablet 08/23/18 Unknown Rx Strength] Acetaminophen/Codeine [Tylenol 1 tab PO Q6H PRN #6 tab 08/23/18 Unknown Rx /Codeine # 3 tab] Prochlorperazine [Compazine] 10 mg PO Q8HR PRN #21 tablet 08/23/18 Unknown Rx diphenhydrAMINE [Benadryl CAP] 25 mg PO Q6HR PRN #28 capsule 08/23/18 Unknown Rx Acetaminophen/Codeine [Tylenol 1 tab PO Q6H PRN #12 tab 10/22/18 Unknown Rx /Codeine # 3 tab] Ondansetron [Zofran Odt] 4 mg PO Q8HR PRN #12 tab.rapdis 10/22/18 Unknown Rx Tamsulosin [Flomax] 0.4 mg PO QDAY #30 cap 10/22/18 Unknown Rx ED Physical Exam - General Limitations: No Limitations General appearance: alert, in no apparent distress - Head Head exam: Present: atraumatic, normocephalic - Eye Eye exam: Present: normal appearance, PERRL, EOMI - ENT ENT exam: Present: mucous membranes moist - Neck Neck exam: Present: normal inspection - Respiratory Respiratory exam: Present: normal lung sounds bilaterally. Absent: respiratory distress, wheezes, stridor, chest wall tenderness - Cardiovascular Cardiovascular Exam: Present: regular rate, normal rhythm, normal heart sounds. Absent: systolic murmur, diastolic murmur, rubs, gallop - GI/Abdominal GI/Abdominal exam: Present: soft, tenderness (right flank ), normal bowel sounds. Absent: distended, guarding, rebound, rigid, bruit, hernia - Rectal Rectal exam: Present: deferred - Extremities Exam Extremities exam: Present: normal inspection, full ROM. Absent: tenderness - Back Exam Back exam: Present: normal inspection, full ROM, tenderness, CVA tenderness (R). Absent: CVA tenderness (L), muscle spasm, rash noted - Neurological Exam Neurological exam: Present: alert, oriented X3, CN II-XII intact, normal gait - Psychiatric Psychiatric exam: Present: normal affect, normal mood - Skin Skin exam: Present: warm, dry, intact, normal color. Absent: rash ED Course Vital Signs 10/22/18 10/22/18 10/22/18 16:36 18:48 19:37 Temperature 98.2 F Pulse Rate 92 H Respiratory 18 18 16 Rate Blood Pressure 145/89 O2 Sat by Pulse 98 98 Oximetry ED Medical Decision Making - Lab Data Result diagrams: 10/22/18 17:05 10/22/18 17:05 Labs 10/22/18 10/22/18 10/22/18 17:05 17:05 17:44 WBC 7.5 RBC 4.94 Hgb 11.1 Hct 35.4 MCV 72 L MCH 22 L MCHC 31 RDW 20.3 H Plt Count 259 Lymph % (Auto) 41.8 H Rains % (Auto) 6.1 Eos % (Auto) 3.4 Baso % (Auto) 1.0 Lymph # 3.1 Rains # 0.5 Eos # 0.3 Baso # 0.1 Seg Neutrophils % 47.7 Seg Neutrophils # 3.6 Sodium 140 Potassium 3.8 Chloride 103.4 Carbon Dioxide 26 Anion Gap 14 BUN 9 Creatinine 0.7 Estimated GFR > 60 BUN/Creatinine Ratio 13 Glucose 83 Calcium 8.9 Total Bilirubin < 0.20 AST 18 ALT 15 Alkaline Phosphatase 88 Total Protein 6.6 Albumin 3.8 L Albumin/Globulin Ratio 1.4 Urine Color Yellow Urine Turbidity Clear Urine pH 6.0 Ur Specific Avery 1.029 Urine Protein <15 mg/dl Urine Glucose (UA) >=500 Urine Ketones Neg Urine Blood Neg Urine Nitrite Neg Urine Bilirubin Neg Urine Urobilinogen 2.0 Ur Leukocyte Esterase Neg Urine WBC (Auto) 1.0 Urine RBC (Auto) 1.0 U Epithel Cells (Auto) < 1.0 Urine Mucus Few - Radiology Data Radiology results: report reviewed, image reviewed FINAL REPORT PROCEDURE: CT ABDOMEN PELVIS WO CON TECHNIQUE: Computerized axial tomography of the abdomen and pelvis was performed without intravenous contrast. This study is performed without intravascular contrast material and its sensitivity for abdominal and pelvic pathology, including neoplasms, inflamma tion, abscess, free fluid, thrombosis, arterial dissection and infarction, is reduced compared with a contrast enhanced study. HISTORY: flank/ abdo pain COMPARISON: 12/04/2015 FINDINGS: Visualized lower thorax: No significant abnormality. Liver: Normal size and attenuation. Spleen: Normal size and attenuation. Gallbladder and biliary system: There has been cholecystectomy. Pancreas: Normal. Adrenals: Normal. Kidneys: Punctate 1 millimeter nonobstructing left renal calculus . GI tract: The appendix is visualized and does not appear inflamed. No bowel obstruction or inflammation. Lymph nodes and mesentery: Normal. Vasculature: Normal. Bladder: Normal. Reproductive organs: There is a tampon in the vagina. No acute abnormality is seen. Peritoneum: No free fluid. Musculoskeletal structures: There are degenerative disc changes at L5-S1. Other: None. IMPRESSION: No acute abnormality is identified. There is a punctate nonobstructing left renal calculus Transcribed By: [facility] Dictated By: VALERIE BONILLA M.D. Electronically Authenticated By: VALERIE BONILLA M.D. Signed Date/Time: 10/22/181935 DD/ 34 TD/TT: 10/22/181934 - Medical Decision Making ct abd pelvis 1mm left kidney stone nonobstructing no hydronephrosis no uti plan: flomax, tylenol 3, follow up with urology in 2-3 days pt verbalized a greement and understanding of discharge plan , pt for dc to home in stable condition at this time. Critical care attestation.: If time is entered above; I have spent that time in minutes in the direct care of this critically ill patient, excluding procedure time. ED Disposition Clinical Impression: Kidney stone Disposition: DC-01 TO HOME OR SELFCARE Is pt being admited?: No Does the pt Need Aspirin: No Condition: Stable Instructions: Kidney Stones (ED) Prescriptions: Acetaminophen/Codeine [Tylenol /Codeine # 3 tab] 1 tab PO Q6H PRN #12 tab PRN Reason: pain Ondansetron [Zofran Odt] 4 mg PO Q8HR PRN #12 tab.rapdis PRN Reason: Nausea And Vomiting Tamsulosin [Flomax] 0.4 mg PO QDAY #30 cap Referrals: YAO HUNT MD [Staff Physician] - 3-5 Days Forms: Work/School Release Form(ED)
[2018-10-22 19:58] VITALS: BP 130/82
== END 2018-10-22 19:58 | disposition home or self-care (01) ==
LOC: ED 15:54
DX: N20.0 Calculus of kidney (principal); G43.909 Migraine, unspecified, not intractable, without status migrainosus; F32.9 Major depressive disorder, single episode, unspecified; E03.9 Hypothyroidism, unspecified; Z87.891 Personal history of nicotine dependence; Z98.51 Tubal ligation status; Z90.49 Acquired absence of other specified parts of digestive tract; Z86.711 Personal history of pulmonary embolism; Z88.6 Allergy status to analgesic agent; Z79.899 Other long term (current) drug therapy
CPT/HCPCS: 36415; 74176; 80053; 81001; 85025; Q0162